=== PATIENT | female | born 1960 | race Caucasian/White ===

== ENCOUNTER → 2020-02-21 | Outpatient (CLI) | payer BC ==
--- NOTE | 2020-02-21 14:26 | Diagnostic Imaging Report ---
INDICATION: Pain status post injury COMPARISON: None. FINDINGS: 3 views of the right knee joint demonstrate no acute fracture or dislocation. No focal osseous lesions are seen. Small suprapatellar joint effusion is seen. The surrounding soft tissue structures are unremarkable. There are no radiopaque foreign bodies. IMPRESSION: 1. Small suprapatellar joint effusion, but no evidence of acute fracture or dislocation of the right knee. Dictated by: Dictated on workstation # [id number]
== END ==
LOC: RAD FS 14:05
PROVIDERS: ATTEND Nurse Practitioner
DX: M25.461 Effusion, right knee (principal)
CPT/HCPCS: 73562

== ENCOUNTER → 2020-03-20 | Outpatient (CLI) | payer BC ==
--- NOTE | 2020-03-20 14:53 | Diagnostic Imaging Report ---
INDICATION: Pain in left knee, no known injury. TECHNIQUE: Three views of the left knee. CORRELATION STUDY: None. FINDINGS: Mild joint space narrowing is noted in the medial, lateral, and patellofemoral compartments. Minimal spur-like formation of the inferior pole of the patella. Subcortical cystic change about the patella. Small joint effusion. Soft tissues are unremarkable. IMPRESSION: Negative for acute bony abnormality of the knee. Mild to moderate multicompartment degenerative changes of the left knee. Dictated by: Dictated on workstation # [id number]
== END ==
LOC: RAD FS 13:55
PROVIDERS: ATTEND Nurse Practitioner
DX: M17.12 Unilateral primary osteoarthritis, left knee (principal)
CPT/HCPCS: 73562